=== PATIENT | female | born 1955 | race Caucasian/White ===

== ENCOUNTER 2016-06-19 09:35 | Emergency (ER) | payer OTHER ==
--- NOTE | 2016-06-19 10:05 | ED Physician Documentation ---
PD HPI ABD PAIN - Stated complaint Stated Complaint: ABD PX - Chief complaint Chief Complaint: Abd Pain - History obtained from History obtained from: Patient - History of Present Illness Timing - onset: How many days ago (3-4) Timing - duration: Days Timing - details: Gradual onset, Waxing and waning Quality: Aching, Pain Location: Periumbilical Review of Systems Constitutional: denies: Fever, Chills, Myalgias Nose: denies: Rhinorrhea / runny nose, Congestion Throat: denies: Sore throat Cardiac: denies: Chest pain / pressure Respiratory: denies: Cough GI: reports: Abdominal Pain. denies: Nausea, Vomiting, Constipation, Diarrhea : denies: Dysuria, Frequency Skin: denies: Rash, Lesions PD PAST MEDICAL HISTORY - Past Medical History Cardiovascular: None Respiratory: None Neuro: None Endocrine/Autoimmune: None GI: None - Past Surgical History Past Surgical History: Yes General: Appendectomy - Present Medications Home Medications: Ambulatory Orders Medication Instructions Recorded Confirmed Citalopram [CeleXA] 30 mg PO DAILY 06/19/16 06/19/16 Docusate Sodium 100 mg PO DAILY #30 capsule 06/19/16 LORazepam [Ativan] 1 tab PO .FREQ 06/19/16 06/19/16 Naproxen 375 mg PO BID #20 tablet 06/19/16 Simvastatin 40 mg PO DAILY 06/19/16 06/19/16 Tramadol HCl 50 mg PO Q6H PRN #20 tablet 06/19/16 - Allergies Allergies/Adverse Reactions: Allergies Allergy/AdvReac Type Severity Reaction Status Date / Time penicillamine Allergy Edema Verified 06/19/16 09:43 PD ED PE NORMAL - Vitals Vital signs reviewed: Yes - General General: Alert and oriented X 3, No acute distress, Well developed/nourished - HEENT HEENT: Pharynx benign - Neck Neck: Supple, no meningeal sign, No adenopathy - Cardiac Cardiac: RRR, No murmur - Respiratory Respiratory: Clear bilaterally - Abdomen Abdomen: Normal bowel sounds, Soft, Non distended, No organomegaly, Other ( tender with out guarding umbilical area with small hernia defect felt. In standing position, there is slight hernia there but soft and reduces easily. It is a bit tender. ) Results - Vitals Vitals: Oxygen O2 Source Room air - Labs Labs: Laboratory Tests 06/19/16 06/19/16 06/19/16 10:35 10:45 10:45 WBC 7.4 RBC 4.54 Hgb 14.3 Hct 42.3 MCV 93.2 MCH 31.5 H MCHC 33.8 RDW 13.7 Plt Count 261 MPV 8.6 Neut # 4.0 Lymph # 2.6 [place] # 0.6 Eos # 0.1 Baso # 0.1 Absolute Nucleated RBC 0.00 Nucleated RBCs 0.1 Sodium 138 Potassium 3.9 Chloride 102 Carbon Dioxide 29 Anion Gap 7.0 BUN 14 Creatinine 0.5 Estimated GFR (MDRD) 125 Glucose 93 Calcium 9.0 Total Bilirubin 0.6 AST 31 ALT 24 Alkaline Phosphatase 65 Total Protein 7.9 Albumin 4.5 Globulin 3.4 Albumin/Globulin Ratio 1.3 Lipase 44 Urine Color YELLOW Urine Clarity CLEAR Urine pH 7.0 Ur Specific [place] 1.010 Urine Protein NEGATIVE Urine Glucose (UA) NEGATIVE Urine Ketones NEGATIVE Urine Occult Blood MODERATE H Urine Nitrite NEGATIVE Urine Bilirubin NEGATIVE Urine Urobilinogen 0.2 (NORMAL) Ur Leukocyte Esterase NEGATIVE Urine RBC 0-5 Urine WBC 0-3 Ur Squamous Epith Cells NONE SEEN Urine Bacteria None Seen Ur Microscopic Review INDICATED Urine Culture Comments NOT INDICATED - Rads (name of study) abd CT Radiology: Prelim report reviewed, EMP read contemporaneously (normal appearance. Incidental liver cyst (she says she has had liver mass noted in the past with biopsy and was benign. I presume same thing. ) PD MEDICAL DECISION MAKING - ED course Complexity details: reviewed results, considered differential (has tenderness around umbilicus with small hernia noted in standing position, but not incarcerated and no other obvious cause found on CT/urine. ), d/w patient Departure - Departure Disposition: 01 Home, Self Care Clinical Impression: Abdominal pain Qualifiers: Abdominal location: periumbilical Qualified Code(s): R10.33 - Periumbilical pain Umbilical hernia Qualifiers: Obstruction and gangrene presence: without obstruction or gangrene Qualified Code(s): K42.9 - Umbilical hernia without obstruction or gangrene Condition: Stable Record reviewed to determine appropriate education?: Yes Instructions: ED Abdominal Pain Unkn Cause, ED Hernia Inguinal Follow-Up: GARCIA LOPEZ MD [Provider Admit Priv/Credential] - Prescriptions: Docusate Sodium 100 mg PO DAILY #30 capsule Naproxen 375 mg PO BID #20 tablet Tramadol HCl 50 mg PO Q6H PRN #20 tablet PRN Reason: Pain Comments: Your tests are looking okay, so presume the pain is related to the abdominal muscles and the hernia. Naproxen twice daily for 7-10 days, and stool softener daily for same. Drink lots of fluids. Tylenol 4 times daily as needed for pain, and add Tramadol for worse pain if needed. Follow up with Surgery if continues to bother you. Refer to instructions about hernia (the info sheet refers to inguinal hernia and not umbilical, but cautions are the same). Discharge Date/Time: 06/19/16 13:05
[2016-06-19 10:44] LABS: BILIRUBIN,URINE NEGATIVE (NEGATIVE)
[2016-06-19 10:46] LABS: UA w/ MICROSCOPIC CHARGE YES
[2016-06-19 10:54] LABS: UR CULTURE IF IND NOT INDICATED; WBC,URINE 0-3 /HPF (0-5)
[2016-06-19 11:06] LABS: BASOPHILS # (AUTO) 0.1 10^3/uL (0.0-0.1); EOSINOPHILS # (AUTO) 0.1 10^3/uL (0.0-0.7); EOSINOPHILS % (AUTO) 1.5 %; HCT - HEMATOCRIT 42.3 % (37.0-47.0); HGB - HEMOGLOBIN 14.3 g/dL (12.0-16.0); LYMPHOCYTES # (AUTO) 2.6 10^3/uL (1.5-3.5); LYMPHOCYTES % (AUTO) 34.8 %; MEAN CORPUSCULAR HEMOGLOBIN 31.5 pg (27.0-31.0); MEAN CORPUSCULAR HGB CONC 33.8 g/dL (32.0-36.0); MEAN CORPUSCULAR VOLUME 93.2 fL (81.0-99.0); MEAN PLATELET VOLUME 8.6 fL (7.9-10.8); MONOCYTES # (AUTO) 0.6 10^3/uL (0.0-1.0); MONOCYTES % (AUTO) 8.7 %; NUCLEATED RED BLOOD CELLS AUTO 0.1 /100WBC; RED BLOOD COUNT 4.54 10^6/uL (4.20-5.40); RED CELL DISTRIBUTION WIDTH 13.7 % (12.0-15.0); UNCORRECTED WHITE BLOOD COUNT 7.4 x10^3/uL; WHITE BLOOD COUNT 7.4 x10^3/uL (4.8-10.8)
[2016-06-19 11:16] LABS: ALBUMIN/GLOBULIN RATIO 1.3 (1.0-2.2); BILIRUBIN,TOTAL 0.6 mg/dL (0.2-1.0); CREATININE 0.5 mg/dL (0.4-1.0); POTASSIUM 3.9 mmol/L (3.5-5.0); TOTAL PROTEIN 7.9 g/dL (6.7-8.2)
[2016-06-19] MEDS ORDERED: IOPAMIDOL-300 100 ML VIAL IVP ONE (11:42)
[2016-06-19 12:03] VITALS: BP 134/68
--- NOTE | 2016-06-19 12:42 | CT Preliminary Report ---
Exam: CT Abdomen/Pelvis W/ IMPRESSION: 1. No acute inflammatory process demonstrated. 2. Nearly diffuse fatty liver infiltration. 3. A 1.4 cm focal area of enhancement within inferolateral left liver lobe could be from focal fatty sparing, transient hepatic attenuation difference or small mass. If patient has outside prior studies , comparison could be made. MRI is an option to further assess if clinically warranted. [facility] SITE ID: [id number]
--- NOTE | 2016-06-19 12:45 | CT Report ---
EXAM: CT ABDOMEN AND PELVIS EXAM DATE: 06/19/2016 11:41 AM. CLINICAL HISTORY: Periumbilical pain for few days. COMPARISONS: None. TECHNIQUE: Routine helical CT imaging was performed through the abdomen and pelvis. IV contrast: 100 cc Isovue-300. Enteric contrast: No. Reconstructions: Coronal and sagittal. In accordance with CT protocol optimization, one or more of the following dose reduction techniques w ere utilized for this exam: automated exposure control, adjustment of mA and/or KV based on patient s ize, or use of iterative reconstructive technique. FINDINGS: Lung Bases: Unremarkable. Liver: Mild diffuse fatty liver infiltration. A region of focal prominent enhancement within inferolateral left liver lobe segment 3 measuring 1.3 x 1.4 cm on series 4 image 22. Margins appear geographic on coronal series, however nodular on axial series. Small vessels may be present within this region of increased enhancement. Gallbladder/Bile Ducts: Unremarkable. Spleen: Normal. Pancreas: Normal. Adrenal Glands: Normal. Kidneys: No suspicious renal mass or hydronephrosis. Bilateral renal cysts. Right parapelvic and romain ical renal cysts. Peritoneal Cavity/Bowel: Normal. No free fluid, free air or adenopathy. No masses or acute inflammato ry process. Appendix not identified. No inflamed appendix evident. Pelvic Organs: Left adnexal varices. The bladder and visualized pelvic organs are otherwise unremarka ble. Vasculature: No aneurysms or other significant abnormality. Bones: No significant abnormality. Other: None. IMPRESSION: 1. No acute inflammatory process demonstrated. 2. Nearly diffuse fatty liver infiltration. 3. A 1.4 cm focal area of enhancement within inferolateral left liver lobe could be from focal fatty sparing, transient hepatic attenuation difference or small mass. If patient has outside prior studies , comparison could be made. MRI is an option to further assess if clinically warranted. [facility] Referring Provider Line: [phone] SITE ID: [id number]
== END 2016-06-19 13:05 | disposition home or self-care (01) ==
LOC: ED 09:35
DX: K42.9 Umbilical hernia without obstruction or gangrene (principal); R10.33 Periumbilical pain; K76.0 Fatty (change of) liver, not elsewhere classified
CPT/HCPCS: 74177; 80053; 81001; 83690; 85025; 99283; Q9967; 81003; 87086

== ENCOUNTER 2016-08-23 07:37 | Day surgery (SDC) | payer OTHER ==
[2016-08-23] MEDS ORDERED: LACTATED RINGERS 1,000 ML IV ONE (08:05)
--- NOTE | 2016-08-23 09:28 | HISTORY & PHYSICAL EXAMINATION ---
HPI - History of Present Illness HPI Comment/Other: Patient is here for screening colonoscopy. Last colonoscopy 10-13 years ago without polyps per patient. Current Meds: SIMVASTATIN 40 MG ORAL TABS (SIMVASTATIN) take one tablet by mouth daily LORAZEPAM 0.5 MG ORAL TABS (LORAZEPAM) take one-half to one tablet by mouth twice daily if needed for anxiety CELEXA 10 MG ORAL TABS (CITALOPRAM HYDROBROMIDE) take one tablet by mouth daily (total 30mg) CELEXA 20 MG ORAL TABS (CITALOPRAM HYDROBROMIDE) take one tablet by mouth daily (total 30 mg) Allergies: PENICILLIN V POTASSIUM (Critical) Past Medical History: Reviewed history from 07/11/2016 and no changes required: Kidney stones (calcium based) Anx/dep Hyperchol Hepatic cyst Osteopenia Abnormal pap in 20's, tx'd w/ cryo, normal paps since then Ex w/ Hep c - tested ~2001, negative Past Surgical History: Reviewed history from 06/29/2016 and no changes required: appendix and right ovary ( appendix had wrapped itself around ovary) - age 18 liver biopsy, benign - ~2004? Tonsillectomy Kidney stone retrieval ~2001 No surgical/anesthesia complications Family History Summary: Reviewed history and no changes required: 07/13/2016 Father (biol.) - Has a father - Entered On: 06/29/2016 General Comments - FH: Mom: at 83 of chf, valve replacement, cabg 3w, jenelle, complete hysterectomy. Ovarian cancer. Ureter cancer Dad: of [place] at 61, PUD Older Sister: Younger Sister: kidney stones Brother: cardiac surgeon, in an flying accident, electrical fire - at 49 PU: all of MIs Risk Factors: Smoked Tobacco Use: Former smoker Smokeless Tobacco Use: Never Passive smoke exposure: no Drug use: no HIV high-risk behavior: no Caffeine use: <1 drinks per day Alcohol use: yes Drinks per day: social Exercise: yes Times per week: 7 Type of Exercise: walking Seatbelt use: 100 % Sun Exposure: frequently Previous Tobacco Use: Signed On - 07/11/2016 Smoked Tobacco Use: Former smoker Smokeless Tobacco Use: Never Passive smoke exposure: no Drug use: no HIV high-risk behavior: no Caffeine use: <1 drinks per day Previous Alcohol Use: Signed On 07/11/2016 Alcohol use: yes Drinks per day: social Exercise: yes Times per week: 7 Type of Exercise: walking Seatbelt use: 100 % Sun Exposure: frequently Mammogram History: Date of Last Mammogram: 11/14/2015 PAP Smear History: Date of Last PAP Smear: 11/11/2013 Review of Systems See HPI Physical Exam General: well developed, well nourished, in no acute distress Lungs: clear bilaterally to A & P Heart: regular rate and rhythm, S1, S2 without murmurs, rubs, gallops, or clicks Abdomen: Tiny palpable umbilical hernia that feels incarcerated. Pulses: pulses normal in all 4 extremities Extremities: no clubbing, cyanosis, edema, or deformity noted with normal full range of motion of all joints Neurologic: no focal deficits, CN II-XII grossly intact with normal reflexes, coordination, muscle strength and tone Cervical Nodes: no significant adenopathy Psych: alert and cooperative; normal mood and affect; normal attention span and concentration Impression & Recommendations: Problem # 1: Surveillance for colon cancer will proceed with colonoscopy PMH/PSH - Past Medical History Cardiovascular: positive: None Respiratory: positive: None Neuro: positive: None Endocrine/Autoimmune: positive: None GI: positive: None - Past Surgical History 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
[2016-08-23] MEDS ORDERED: MIDAZOLAM 2 MG/2 ML VIAL IVP ONE (09:29)
[2016-08-23] MEDS ORDERED: fentaNYL 100 MCG/2 ML VIAL IVP ONE (09:29)
[2016-08-23 11:08] VITALS: BP 117/66
== END 2016-08-23 07:38 | disposition home or self-care (01) ==
LOC: SDS 07:37
PROVIDERS: ATTEND Surgery
PROC: 0DBN8ZX Excision of Sigmoid Colon, Via Natural or Artificial Opening Endoscopic, Diagnostic (ICD-10-PCS; principal; 2016-08-23 09:00)
DX: Z12.11 Encounter for screening for malignant neoplasm of colon (principal); K63.5 Polyp of colon; K64.8 Other hemorrhoids; E78.00 Pure hypercholesterolemia, unspecified; F41.9 Anxiety disorder, unspecified; F32.9 Major depressive disorder, single episode, unspecified; Z82.49 Family history of ischemic heart disease and other diseases of the circulatory system; Z80.41 Family history of malignant neoplasm of ovary; Z80.49 Family history of malignant neoplasm of other genital organs; Z87.891 Personal history of nicotine dependence; Z88.0 Allergy status to penicillin
CPT/HCPCS: 45380; J7120; 88305

== ENCOUNTER 2016-09-03 08:00 | Day surgery (SDC) | payer OTHER ==
[~2016-09-03 08:00] MED LIST: LACTATED RINGERS 1,000 ML IV ONE
--- NOTE | 2016-09-03 09:06 | HISTORY & PHYSICAL EXAMINATION ---
HPI - History of Present Illness HPI Comment/Other: Jo Ann is here for umbilical hernia repair. Current Meds: SIMVASTATIN 40 MG ORAL TABS (SIMVASTATIN) take one tablet by mouth daily LORAZEPAM 0.5 MG ORAL TABS (LORAZEPAM) take one-half to one tablet by mouth twice daily if needed for anxiety CELEXA 10 MG ORAL TABS (CITALOPRAM HYDROBROMIDE) take one tablet by mouth daily (total 30mg) CELEXA 20 MG ORAL TABS (CITALOPRAM HYDROBROMIDE) take one tablet by mouth daily (total 30 mg) Allergies: PENICILLIN V POTASSIUM (Critical) Past Medical History: Reviewed history from 07/11/2016 and no changes required: Kidney stones (calcium based) Anx/dep Hyperchol Hepatic cyst Osteopenia Abnormal pap in 20's, tx'd w/ cryo, normal paps since then Ex w/ Hep c - tested ~2001, negative Past Surgical History: Reviewed history from 06/29/2016 and no changes required: appendix and right ovary ( appendix had wrapped itself around ovary) - age 18 liver biopsy, benign - ~2004? Tonsillectomy Kidney stone retrieval ~2001 No surgical/anesthesia complications Family History Summary: Reviewed history and no changes required: 07/13/2016 Father (biol.) - Has a father - Entered On: 06/29/2016 General Comments - FH: Mom: at 83 of chf, valve replacement, cabg 3w, jenelle, complete hysterectomy. Ovarian cancer. Ureter cancer Dad: of [place] at 61, PUD Older Sister: Younger Sister: kidney stones Brother: cardiac surgeon, in an flying accident, electrical fire - at 49 PU: all of MIs Risk Factors: Smoked Tobacco Use: Former smoker Smokeless Tobacco Use: Never Passive smoke exposure: no Drug use: no HIV high-risk behavior: no Caffeine use: <1 drinks per day Alcohol use: yes Drinks per day: social Exercise: yes Times per week: 7 Type of Exercise: walking Seatbelt use: 100 % Sun Exposure: frequently Previous Tobacco Use: Signed On - 07/11/2016 Smoked Tobacco Use: Former smoker Smokeless Tobacco Use: Never Passive smoke exposure: no Drug use: no HIV high-risk behavior: no Caffeine use: <1 drinks per day Previous Alcohol Use: Signed On - 07/11/2016 Alcohol use: yes Drinks per day: social Exercise: yes Times per week: 7 Type of Exercise: walking Seatbelt use: 100 % Sun Exposure: frequently Mammogram History: Date of Last Mammogram: 11/14/2015 PAP Smear History: Date of Last PAP Smear: 11/11/2013 Physical Exam General: well developed, well nourished, in no acute distress Lungs: clear bilaterally to A & P Heart: regular rate and rhythm, S1, S2 without murmurs, rubs, gallops, or clicks Abdomen: Tiny palpable umbilical hernia that feels incarcerated. Pulses: pulses normal in all 4 extremities Extremities: no clubbing, cyanosis, edema, or deformity noted with normal full range of motion of all joints Neurologic: no focal deficits, CN II-XII grossly intact with normal reflexes, coordination, muscle strength and tone Cervical Nodes: no significant adenopathy Psych: alert and cooperative; normal mood and affect; normal attention span and concentration Impression & Recommendations: Problem # 2: Umbilical hernia The umbilical hernia repair was explained to the patient in detail including potential risks involved including but limited to bleeding, infection, damage to intra-abdominal organs. She understands all the above and agrees to proceed with surgery. 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 HEENT: positive: Tonsil/Adenoidectomy Social & Family Hx - Social History Does the pt smoke?: No Smoking Status: Never smoker Does the pt drink ETOH?: Yes ETOH Use: Wine Does the pt have substance abuse?: No Substance Use and Type: Marijuana Meds/Allgy - Home Medications Home Medications: Ambulatory Orders Medication Instructions Recorded Confirmed Citalopram [CeleXA] 30 mg PO DAILY 06/19/16 09/03/16 LORazepam [Ativan] 1 tab PO PRN PRN 06/19/16 08/29/16 Simvastatin 40 mg PO DAILY 06/19/16 09/03/16 - Allergies Allergies/Adverse Reactions: Allergies Allergy/AdvReac Type Severity Reaction Status Date / Time Penicillins Allergy Unknown Verified 08/29/16 14:41 Exam - Vital Signs Vital Signs: Vital Signs x48h Temp Pulse Resp BP Pulse Ox 09/03/16 08:12 36.2 C L 61 16 127/64 98
[2016-09-03] MEDS ORDERED: BUPIVACAINE 0.5% PF 30 ML VIAL SUBQ ONE ×2 (09:29)
[2016-09-03] MEDS ORDERED: ONDANSETRON 4 MG/2 ML VIAL IVP ONE (09:50)
[2016-09-03] MEDS ORDERED: LIDOCAINE-MPF 2% 5 ML VIAL IM ONE (09:50)
[2016-09-03] MEDS ORDERED: PROPOFOL 200 MG/20 ML VIAL IVP ONE (09:50)
[2016-09-03] MEDS ORDERED: METOCLOPRAMIDE 10 MG/2 ML VIAL IVP ONE (09:50)
[2016-09-03] MEDS ORDERED: KETOROLAC 30 MG/ML VIAL IVP ONE (09:50)
[2016-09-03] MEDS ORDERED: MIDAZOLAM 2 MG/2 ML VIAL IVP ONE (09:50)
[2016-09-03] MEDS ORDERED: oxyCOD/ACETAMIN 5 MG/325 MG TABLET PO ONE ×2 (10:32→10:35)
[2016-09-03 11:24] VITALS: BP 102/52
--- NOTE | 2016-09-04 17:38 | OPERATIVE REPORT ---
DATE OF SURGERY: 09/03/2016 00:00:00 PREOPERATIVE DIAGNOSIS: umbilical hernia POSTOPERATIVE DIAGNOSIS: umbilical hernia NAME OF PROCEDURE: Umbilical hernia repair. SURGEON: Regla Obregon MD. ANESTHESIOLOGIST: Dr. Brand. INDICATION FOR PROCEDURE: This is a 61-year-old female with an incarcerated tiny umbilical hernia, who presents for elective umbilical hernia repair. The hernia is noted to contain fat only. FINDINGS: After obtaining informed consent from the patient, she was brought into the operating room, positioned on the operating table in the supine position, taking note of pressure points. She was administered sedation by Anesthesia. She was then prepped and draped in the usual sterile fashion, and a timeout was taken according to protocol. 10 mL Local anesthestic was infiltrated below the umbilicus. A semicircular periumbilical incision was made below the umbilicus, measuring approximately 2-1/2 cm in length. The subcutaneous tissue was divided with electrocautery down to the abdominal wall fascia. The small umbilical hernia was then circled with a tonsil clamp and it was from the skin with electrocautery. A very small facial defect was noted, approximately 5 mm in diameter. After clearing the fat from the fascial edges, the defect was then closed with a [id number] 0 Vicryl suture. Upon palpation of the repair, an opening of the anterior rectus sheath was noted just lateral to the repair site. This was closed with a [id number] 0 Vicryl suture. Palpation confirmed complete closure of the hernia defect. The cavity was then irrigated. Hemostasis was noted to be achieved. The umbilical skin was then tacked down to the anterior fascia and the incision was closed in layers with 3-0 Vicryl and 4-0 Monocryl. Dermabond was then applied. A total of 30 mL of local anesthetic was utilized. SPECIMENS: None. ESTIMATED BLOOD LOSS: Minimal. COMPLICATIONS: None. JOB #: [id number] EXT JOB #:[id number] MTDD
== END 2016-09-03 08:01 | disposition home or self-care (01) ==
LOC: SDS 08:00
PROVIDERS: ATTEND Surgery
PROC: 0WQF0ZZ Repair Abdominal Wall, Open Approach (ICD-10-PCS; principal; 2016-09-03 09:15)
DX: K42.0 Umbilical hernia with obstruction, without gangrene (principal); E78.00 Pure hypercholesterolemia, unspecified; F41.9 Anxiety disorder, unspecified; F32.9 Major depressive disorder, single episode, unspecified; Z82.49 Family history of ischemic heart disease and other diseases of the circulatory system; Z87.891 Personal history of nicotine dependence; Z88.0 Allergy status to penicillin
CPT/HCPCS: 49587; A9270; J7120